=== PATIENT | female | born 1980 | race Caucasian/White ===

== ENCOUNTER 2016-10-23 13:45 | Emergency (ER) | payer OTHER ==
[2016-10-23 14:23] VITALS: TEMP 97.9; BMI 26.2
--- NOTE | 2016-10-23 14:47 | EDPRACDOC ---
- General Information Chief Complaint: Abdominal Pain Stated Complaint: LEFT FLANK PAIN Information Source: Patient Mode Of Arrival: Car Home Medications: Home Medications Montelukast Sodium [Singulair] 10 mg PO DAILY 10/23/16 Ondansetron [Zofran Odt] 4 mg PO TID PRN #14 tab.rapdis 10/23/16 Oxycodone Immediate Release [Oxy-Ir] 5 mg PO Q6H PRN #10 tab 10/23/16 Pantoprazole Sodium [Protonix] 40 mg PO DAILY 10/23/16 Thyroid,Pork [Nature-Throid] 16.25 mg PO DAILY 10/23/16 Wellbutrin Unknown Dose 75 - 150 mg PO DAILY 10/23/16 Allergies/Adverse Reactions: Allergies Allergy/AdvReac Type Severity Reaction Status Date / Time Shellfish *RETIRED-03/03/13 Allergy Anaphylaxis Verified 10/23/16 14:23 [Shellfish] * Sulfa (Sulfonamide Allergy Hives* Verified 10/23/16 14:23 Antibiotics) [Sulfa(Sulfonamide Antibiotics)] - History of Present Illness 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 LMP 1.5 weeks ago. Denies vaginal sx, fever, chnage in urine, BM, cp, sob, diarrhea. Med hx = kidney stones, asthma. Pt states this does not feel like kidney stone. Surgical hx = appy, emeka, 2 c-sections. Pain Location: Reports: LLQ Pain Context: Reports: Spontaneous Pain Severity: Severe Pain Quality: Reports: Cramping Pain Radiation: Reports: No Radiation Last Menstrual Period: 1.5 weeks ago : No Adult Abdominal History: Reports: Abdominal Surgery, Urolithiasis Female Abdominal History: Reports: Abdominal Surgery Modifying Factors: improves with: Nothing Female Associated Signs & Symptoms: Reports: Nausea, Vomiting Oral Intake: Decreased Urinary Output: Normal ED Past Medical History - History Reviewed Yes Nurses notes reviewed and agree except as marked - Patient Medical History Psychological History: Reports: Depression - Social Medical History Smoking Status: Never smoker EDM Review of Systems - Review of Systems ROS Negative Except as Marked: Yes All systems reviewed and were negative except as marked Gastrointestinal: Nausea, Pain, Vomiting - Physical Exam Constitutional: Alert, Distress (pain) Oriented to: Time, Person, Place Last recorded Vital Signs: Last Vital Signs Temp 97.9 F 10/23/16 14:21 Pulse 61 10/23/16 18:29 Resp 19 10/23/16 18:29 BP 110/57 L 10/23/16 18:29 Pulse Ox 99 10/23/16 18:29 Oxygen Pulse Oxygen Saturation 99 O2 Device Room Air Oxygen Flow Rate Fraction of Inspired Oxygen ( FIO2) - HEENT Head: Normal Eye Exam: negative: Conjunctival Injection, Scleral Icterus Oropharynx: negative: Drooling TMJ: Normal Nose: No Symptoms Reported Neck: Normal - Respiratory/Cardiovascular Respiratory: Normal - CTA Cardiovascular: Normal - GI Auscultation: Normal Palpation: Normal Tenderness: LLQ - Bladder: Normal External: Normal Vagina: Discharge Cervix: Tenderness Uterus: Normal size Adnexa: Left: Tender - Musculoskeletal Back: Normal Extremities: Normal - Integumentary Skin: Normal - Neurologic Mood Description: Normal Thought: Coherent Perception: Normal - Results 10/23/16 14:30 10/23/16 14:30 WBC 11.0 xk/uL (3.8-10.8) H 10/23/16 14:30 RBC 5.06 xM/uL (4.20-5.40) 10/23/16 14:30 Hgb 14.5 g/dL (12.0-16.0) 10/23/16 14:30 Hct 41.9 % (36-47) 10/23/16 14:30 MCV 83 fL (81-99) 10/23/16 14:30 MCH 28.7 pg (27-32) 10/23/16 14:30 MCHC 34.7 g/dl (33-36) 10/23/16 14:30 RDW 13.4 % (11.5-14.5) 10/23/16 14:30 Plt Count 277 xk/uL (130-400) 10/23/16 14:30 MPV 8.8 fL (7.4-10.4) 10/23/16 14:30 Neut % (Auto) 73.1 % (45-76) 10/23/16 14:30 Lymph % (Auto) 18.8 % (17-44) 10/23/16 14:30 Davidson % (Auto) 6.5 % (3-10) 10/23/16 14:30 Eos % (Auto) 1.0 % (0-5) 10/23/16 14:30 Baso % (Auto) 0.6 % (0-2) 10/23/16 14:30 Absolute Neuts (auto) 8.03 xk/uL (1.7-8.2) 10/23/16 14:30 Absolute Lymphs (auto) 1.98 xk/uL (0.65-4.75) 10/23/16 14:30 Sodium 137 mEq/L (137-146) 10/23/16 14:30 Potassium 3.9 mEq/L (3.5-5.1) 10/23/16 14:30 Chloride 100 mEq/L (98-107) 10/23/16 14:30 Carbon Dioxide 23 mMOL/L (22-33) 10/23/16 14:30 Anion Gap 18 mEq/L (8-16) H 10/23/16 14:30 BUN 14 MG/DL (7-17) 10/23/16 14:30 Creatinine 0.70 MG/DL (0.52-1.04) 10/23/16 14:30 Estimated GFR (MDRD) > 60 mL/min (>=60) 10/23/16 14:30 Glucose 114 MG/DL (70-99) H 10/23/16 14:30 Calculated Osmolality 266 MOs/Kg (270-290) L 10/23/16 14:30 Calcium 9.7 MG/DL (8.4-10.2) 10/23/16 14:30 Total Bilirubin 1.0 MG/DL (0.2-1.3) 10/23/16 14:30 AST 31 IU/L (14-36) 10/23/16 14:30 ALT 31 IU/L (9-52) 10/23/16 14:30 Alkaline Phosphatase 95 IU/L (38-126) 10/23/16 14:30 Total Protein 8.3 G/DL (6.3-8.2) H 10/23/16 14:30 Albumin 4.9 G/DL (3.5-5.0) 10/23/16 14:30 Beta HCG, Quant < 2.4 mIU/mL (<5) 10/23/16 14:30 Urine Color Dark yellow 10/23/16 15:15 Urine Clarity Clear 10/23/16 15:15 Urine pH 8.0 (5.0-8.0) 10/23/16 15:15 Ur Specific Marquez 1.005 (1.003-1.035) 10/23/16 15:15 Urine Protein 1+ (NEG/TRACE) H 10/23/16 15:15 Urine Glucose (UA) Neg (NEGATIVE) 10/23/16 15:15 Urine Ketones 2+ (NEGATIVE) H 10/23/16 15:15 Urine Occult Blood Neg (NEG/TRACE) 10/23/16 15:15 Urine Nitrite Neg (NEGATIVE) 10/23/16 15:15 Urine Bilirubin Neg (NEGATIVE) 10/23/16 15:15 Urine Urobilinogen <2.0 MG/DL (0-1) 10/23/16 15:15 Ur Leukocyte Esterase Neg (NEGATIVE) 10/23/16 15:15 Urine RBC 0-2 (0-5) 10/23/16 15:15 Urine WBC 0-2 (0-5) 10/23/16 15:15 Ur Epithelial Cells 2+ 10/23/16 15:15 Urine Bacteria Few (NEG/FEW) 10/23/16 15:15 Urine Mucus Mod (NEG/OCC) H 10/23/16 15:15 Urine Test Neg (NEGATIVE) 10/23/16 15:15 Microbiology 10/23/16 15:00 TATIANA Preparation - Final Vaginal 10/23/16 15:00 Trichomonas Wet Mount - Final Vaginal Lab Results 10/23/16 10/23/16 10/23/16 15:15 15:15 14:30 WBC RBC Hgb Hct MCV MCH MCHC RDW Plt Count MPV Neut % (Auto) Lymph % (Auto) Davidson % (Auto) Eos % (Auto) Baso % (Auto) Absolute Neuts (auto) Absolute Lymphs (auto) Sodium Potassium Chloride Carbon Dioxide Anion Gap BUN Creatinine Estimated GFR (MDRD) Glucose Calculated Osmolality Calcium Total Bilirubin AST ALT Alkaline Phosphatase Total Protein Albumin Beta HCG, Quant < 2.4 Urine Color Dark yellow Urine Clarity Clear Urine pH 8.0 Ur Specific Marquez 1.005 Urine Protein 1+ H Urine Glucose (UA) Neg Urine Ketones 2+ H Urine Occult Blood Neg Urine Nitrite Neg Urine Bilirubin Neg Urine Urobilinogen <2.0 Ur Leukocyte Esterase Neg Urine RBC 0-2 Urine WBC 0-2 Ur Epithelial Cells 2+ Urine Bacteria Few Urine Mucus Mod H Urine Test Neg 10/23/16 10/23/16 14:30 14:30 WBC 11.0 H RBC 5.06 Hgb 14.5 Hct 41.9 MCV 83 MCH 28.7 MCHC 34.7 RDW 13.4 Plt Count 277 MPV 8.8 Neut % (Auto) 73.1 Lymph % (Auto) 18.8 Davidson % (Auto) 6.5 Eos % (Auto) 1.0 Baso % (Auto) 0.6 Absolute Neuts (auto) 8.03 Absolute Lymphs (auto) 1.98 Sodium 137 Potassium 3.9 Chloride 100 Carbon Dioxide 23 Anion Gap 18 H BUN 14 Creatinine 0.70 Estimated GFR (MDRD) > 60 Glucose 114 H Calculated Osmolality 266 L Calcium 9.7 Total Bilirubin 1.0 AST 31 ALT 31 Alkaline Phosphatase 95 Total Protein 8.3 H Albumin 4.9 Beta HCG, Quant Urine Color Urine Clarity Urine pH Ur Specific Marquez Urine Protein Urine Glucose (UA) Urine Ketones Urine Occult Blood Urine Nitrite Urine Bilirubin Urine Urobilinogen Ur Leukocyte Esterase Urine RBC Urine WBC Ur Epithelial Cells Urine Bacteria Urine Mucus Urine Test - Diagnostic Imaging Pelvis Image interpreted by: Radiologist 10/23/16 17:33 TRANSABDOMINAL AND TRANSVAGINAL ULTRASOUND OF PELVIS DOPPLER ULTRASOUND OF OVARIES TECHNIQUE: Both transabdominal and transvaginal ultrasound examinations of the pelvis were performed. Transabdominal technique was performed for global imaging of the pelvis including uterus, ovaries, adnexal regions, and pelvic cul-de-sac. It was necessary to proceed with endovaginal exam following the transabdominal exam to visualize the adnexal structures. Color and duplex Doppler ultrasound was utilized to evaluate blood flow to the ovaries. COMPARISON: None. FINDINGS: Uterus Measurements: 9.2 x 4.3 x 6.0 cm. Anteverted. No fibroids or other mass visualized. Endometrium Thickness: 9 mm. No focal abnormality visualized. Right ovary Measurements: 3.2 x 2.0 x 2.0 cm. Normal appearance/no adnexal mass. Left ovary Measurements: 5.4 x 4.0 x 4.6 cm. Within the left ovary there is a 4.0 x 3.3 x 3.9 cm hypoechoic cystic area with lace-like internal echoes. Pulsed Doppler evaluation of both ovaries demonstrates normal low-resistance arterial and venous waveforms. Other findings No abnormal free fluid. IMPRESSION: The left ovary is mildly enlarged and contains a hypoechoic cystic mass most suggestive of a hemorrhagic cyst. Arterial and venous waveforms are demonstrated within the left ovarian tissue. Given the associated left ovarian cyst and size of the ovary, intermittent torsion as a cause of pain cannot be entirely excluded. Probable hemorrhagic cyst left ovary. Short-interval follow up ultrasound in 6-12 weeks is recommended, preferably during the week following the patient's normal menses. Electronically Signed By: Shaka Pfeiffer M.D. On: 10/23/2016 17:27 - Additional Information Dr Soto discussed pt with Dr patterson business risk consultant about possible intermittent torsion v L. ovarian cyst v cervicitis. Dr Patterson recommended covering cervicitis to be safe and having pt follow in the clinic. Decision Time to Discharge: 17:53 - Departure Disposition: Home Condition: Stable Final Diagnosis: Cervicitis Instructions: Acute Abdominal Pain (ED) Education/Counseling Given Regarding: Diagnosis, Treatment, Prognosis, Follow Up Referrals: Renee Lindsay MD [Primary Care Provider] - One Week Antonio Patterson MD [Staff Physician] - One Week Prescriptions: New Ondansetron [Zofran Odt] 4 mg PO TID PRN #14 tab.rapdis PRN Reason: Nausea/Vomiting Oxycodone Immediate Release [Oxy-Ir] 5 mg PO Q6H PRN #10 tab PRN Reason: Pain No Action Pantoprazole Sodium [Protonix] 40 mg PO DAILY Montelukast Sodium [Singulair] 10 mg PO DAILY Thyroid,Pork [Nature-Throid] 16.25 mg PO DAILY Wellbutrin Unknown Dose 75 - 150 mg PO DAILY Additional Instructions: Follow up with PC ANALYST DR Patterson. Return to ED for any new or worsening symptoms.
[2016-10-23] MEDS ORDERED: ONDANSETRON HCL 4 MG/2 ML VIAL IV ONE (14:55)
[2016-10-23] MEDS ORDERED: MORPHINE 4 MG/ML INJECTION IV ONE ×2 (14:55→15:41)
[2016-10-23 15:07] LABS: AUTOMATED BASOPHIL 0.6 % (0-2); AUTOMATED LYMPH 18.8 % (17-44); AUTOMATED MONOCYTE 6.5 % (3-10); AUTOMATED NEUTROPHIL 73.1 % (45-76); MPV 8.8 fL (7.4-10.4)
[2016-10-23 15:39] LABS: LEUKOCYTES/URINE NEG (NEGATIVE); NITRITE/URINE NEG (NEGATIVE); RBC/URINE 0-2 (0-5); URINE OCCULT BLOOD NEG (NEG/TRACE); WBC/URINE 0-2 (0-5)
[2016-10-23 15:40] LABS: BLOOD UREA NITROGEN 14 MG/DL (7-17); CALCIUM 9.7 MG/DL (8.4-10.2); CALCULATED OSMOLALITY 266 MOs/Kg (270-290); CHLORIDE 100 mEq/L (98-107); GLUCOSE 114 MG/DL (70-99); SODIUM LEVEL 137 mEq/L (137-146); TOTAL PROTEIN 8.3 G/DL (6.3-8.2)
--- NOTE | 2016-10-23 17:30 | DIRPT ---
CLINICAL DATA: Patient with left lower quadrant pain for 4 hours. Nausea and vomiting. EXAM: TRANSABDOMINAL AND TRANSVAGINAL ULTRASOUND OF PELVIS DOPPLER ULTRASOUND OF OVARIES TECHNIQUE: Both transabdominal and transvaginal ultrasound examinations of the pelvis were performed. Transabdominal technique was performed for global imaging of the pelvis including uterus, ovaries, adnexal regions, and pelvic cul-de-sac. It was necessary to proceed with endovaginal exam following the transabdominal exam to visualize the adnexal structures. Color and duplex Doppler ultrasound was utilized to evaluate blood flow to the ovaries. COMPARISON: None. FINDINGS: Uterus Measurements: 9.2 x 4.3 x 6.0 cm. Anteverted. No fibroids or other mass visualized. Endometrium Thickness: 9 mm. No focal abnormality visualized. Right ovary Measurements: 3.2 x 2.0 x 2.0 cm. Normal appearance/no adnexal mass. Left ovary Measurements: 5.4 x 4.0 x 4.6 cm. Within the left ovary there is a 4.0 x 3.3 x 3.9 cm hypoechoic cystic area with lace-like internal echoes. Pulsed Doppler evaluation of both ovaries demonstrates normal low-resistance arterial and venous waveforms. Other findings No abnormal free fluid. IMPRESSION: The left ovary is mildly enlarged and contains a hypoechoic cystic mass most suggestive of a hemorrhagic cyst. Arterial and venous waveforms are demonstrated within the left ovarian tissue. Given the associated left ovarian cyst and size of the ovary, intermittent torsion as a cause of pain cannot be entirely excluded. Probable hemorrhagic cyst left ovary. Short-interval follow up ultrasound in 6-12 weeks is recommended, preferably during the week following the patient's normal menses. Electronically Signed By: Shaka Pfeiffer M.D. On: 10/23/2016 17:27
[2016-10-23] MEDS ORDERED: AZITHROMYCIN 250 MG TAB PO ONE (17:53)
[2016-10-23] MEDS ORDERED: CEFTRIAXONE 250 MG in D5W 100 ML IV ONE (17:53)
[2016-10-23] MEDS ORDERED: TRAMADOL HCL 50 MG TAB PO ONE (18:16)
[2016-10-23 18:29] VITALS: BP 110/57
[2016-10-23 19:14] VITALS: PULSE 78
[2016-10-26 16:38] LABS: CHLAMY BY NUCLEIC ACID AMP Negative (Negative)
[2016-10-27 07:56] LABS: GC BY NUCLEIC ACID AMP Negative (Negative)
== END 2016-10-23 19:15 | disposition home or self-care (01) ==
LOC: ED 13:45
DX: N72 Inflammatory disease of cervix uteri (principal)
CPT/HCPCS: 36415; 76830; 76856; 80053; 81001; 81025; 84702; 85025; 87210; 87220; 87491; 87591; 93975; 96365; 99284; J0696; J2270; J2405; J3490; J7060; 96375; 96376